=== PATIENT | female | born 1985 | race Caucasian/White ===

== ENCOUNTER 2019-05-05 07:26 | Emergency (ER) | payer OTHER ==
[~2019-05-05] VITALS: Ht 165.1 cm; Wt 80.5 kg
[2019-05-05] MEDS ORDERED: AMOX875T PO (07:34)
[2019-05-05] MEDS ORDERED: NS 1,000 ML IV ONE (08:15)
[2019-05-05] MEDS ORDERED: dexameTHASONE 20 MG/5 ML VIAL (J1100) IV ONE (08:15)
[2019-05-05 09:04] LABS: BASO % 0.3 % (0.0-1.0); EOS % 0.2 % (0.0-3.0); HEMATOCRIT 39.8 % (36.0-47.0); LYMPH % 15.7 % (24.0-44.0); MEAN CORPUSCULAR HEMOGLOBIN 30.2 pg (27.0-33.0); MEAN CORPUSCULAR HGB CONC 32.7 g/dl (32.0-36.5); MEAN CORPUSCULAR VOLUME 92.3 fl (80.0-96.0); MONO # 1.2 10^3/uL (0.0-0.8); MONO % 9.4 % (0.0-5.0); NEUTROPHILS # 9.2 10^3/uL (1.5-8.5); PLATELET COUNT, AUTOMATED 281 10^3/uL (150-450); RED BLOOD COUNT 4.31 10^6/uL (4.00-5.40); WHITE BLOOD COUNT 12.4 10^3/uL (4.0-10.0)
[2019-05-05 09:28] LABS: BLOOD UREA NITROGEN 10 MG/DL (7-18); CALCIUM LEVEL 8.6 MG/DL (8.5-10.1); CARBON DIOXIDE LEVEL 29 MEQ/L (21-32); CHLORIDE LEVEL 108 MEQ/L (98-107); CREATININE FOR GFR 0.67 MG/DL (0.55-1.30); GLOMERULAR FILTRATION RATE > 60.0 (>60); GLUCOSE, FASTING 87 MG/DL (70-100); POTASSIUM SERUM 4.2 MEQ/L (3.5-5.1); SODIUM LEVEL 141 MEQ/L (136-145)
[2019-05-05 09:34] LABS: MONO REFLEX EBV COMP NEGATIVE (NEGATIVE)
[2019-05-05] MEDS ORDERED: IBUP-1022 PO (10:24)
[2019-05-05 10:29] VITALS: BP 141/83
[2019-05-07 00:06] LABS: EBV VIRAL CAPSID AG IgM >160.0 U/mL (0.0-35.9)
== END 2019-05-05 10:56 | disposition home or self-care (01) ==
LOC: M ED 07:26
DX: J03.90 Acute tonsillitis, unspecified (principal); E86.0 Dehydration; Z88.1 Allergy status to other antibiotic agents
CPT/HCPCS: 80048; 85025; 86308; 86663; 86664; 86665; 96361; 96374; 99283; J1100

== ENCOUNTER 2021-01-01 08:00 | Day surgery (SDC) | payer OTHER ==
[~2021-01-01] VITALS: Ht 165.1 cm; Wt 77.9 kg
[~2021-01-01 08:00] MED LIST: AMOX875T PO; IBUP-1022 PO; LR 1,000 ML IV ONE; TRIA1CR80 TOP; VITMTA PO
[2021-01-01] MEDS ORDERED: MIDAZOLAM INJ 2MG/2ML VIAL (J2250 PER 1MG) As Ordered ONE (08:38)
[2021-01-01] MEDS ORDERED: LIDOCAINE 2% INJ 100 MG/5 ML SYRINGE As Ordered ONE (08:38)
[2021-01-01] MEDS ORDERED: ROCURONIUM BROMIDE 50 MG/5 ML VIAL As Ordered ONE (08:38)
[2021-01-01] MEDS ORDERED: fentaNYL 100 MCG/2 ML INJECTION (J3010) As Ordered ONE (08:38)
[2021-01-01] MEDS ORDERED: METOCLOPRAMIDE INJ 10MG/2ML VIAL (J2765 PER 1) As Ordered ONE (08:43)
[2021-01-01 09:03] LABS: HEMATOCRIT 36.9 % (36.0-47.0); HEMOGLOBIN 12.4 g/dl (12.0-15.5); MEAN CORPUSCULAR HEMOGLOBIN 31.2 pg (27.0-33.0); MEAN CORPUSCULAR HGB CONC 33.6 g/dl (32.0-36.5); MEAN CORPUSCULAR VOLUME 92.7 fl (80.0-96.0); PLATELET COUNT, AUTOMATED 328 10^3/uL (150-450); RED BLOOD COUNT 3.98 10^6/uL (4.00-5.40); WHITE BLOOD COUNT 5.5 10^3/uL (4.0-10.0)
[2021-01-01 09:11] LABS: BLOOD UREA NITROGEN 14 MG/DL (7-18); CALCIUM LEVEL 8.3 MG/DL (8.5-10.1); CARBON DIOXIDE LEVEL 24 MEQ/L (21-32); CHLORIDE LEVEL 109 MEQ/L (98-107); GLOMERULAR FILTRATION RATE > 60.0 (>60); GLUCOSE, FASTING 87 MG/DL (70-100); SODIUM LEVEL 140 MEQ/L (136-145)
[2021-01-01 09:13] LABS: HCG, SERUM QUALITATIVE NEGATIVE (NEGATIVE)
[2021-01-01] MEDS ORDERED: BUPIVACAINE HCL 0.5% 30 ML VIAL As Ordered ONE (10:42)
[2021-01-01] MEDS ORDERED: SCOPOLAMINE 1MG TRANSDERMAL PATCH As Ordered ONE (11:11)
[2021-01-01] MEDS ORDERED: HYDROmorphone HCL 2 MG/ML 1ML VIAL (J1170) As Ordered ONE (11:36)
[2021-01-01] MEDS ORDERED: KETOROLAC 60MG 2ML VIAL As Ordered ONE (11:36)
[2021-01-01] MEDS ORDERED: SUGAMMADEX SODIUM 500 MG/5 ML VIAL (BRIDION) As Ordered ONE (11:38)
[2021-01-01] MEDS ORDERED: ePHEDrine SULFATE 25 MG/5 ML(5MG/ML) SYRINGE As Ordered ONE (11:41)
[2021-01-01] MEDS ORDERED: GLYCOPYRROLATE INJ 0.2 MG/ML 2 ML VIAL As Ordered ONE (11:42)
[2021-01-01] MEDS ORDERED: fentaNYL 100 MCG/2 ML INJECTION (J3010) IV PRN (12:25)
[2021-01-01] MEDS ORDERED: LR 1,000 ML IV SCH (12:25)
[2021-01-01] MEDS ORDERED: KETOROLAC 30 MG/ML 1ML VIAL IV PRN (12:25)
[2021-01-01] MEDS ORDERED: ONDANSETRON 4MG/2ML VIAL IV PRN (12:25)
[2021-01-01] MEDS: oxyCODONE 5MG TAB PO PRN ×2 (12:32→13:55)
--- NOTE | 2021-01-01 12:56 | RO ---
OPERATIVE NOTE DATE OF OPERATION: 01/01/2021 PREOPERATIVE DIAGNOSIS: Satisfied parity, desire for Mirena intrauterine device removal. POSTOPERATIVE DIAGNOSIS: Satisfied parity, desire for Mirena intrauterine device removal. PROCEDURE: Intrauterine device removal and laparoscopic bilateral salpingectomy. SURGEON: Girish Amezquita DO EXTRUSION PRESS ADJUSTER: Kim Ortiz MD ANESTHESIA: General. IV FLUIDS: 1 liter LR. URINE OUTPUT: 50 mL via straight cath. EBL: 5 mL. ANTIBIOTICS: None indicated. COMPLICATIONS: None. OPERATIVE FINDINGS: Normal appearing uterus, small paratubal cysts bilaterally on fallopian tubes, ovaries normal in appearance. Liver normal. Gastric curve normal. DESCRIPTION OF PROCEDURE: The risks, benefits, indications, and alternatives of the procedure were reviewed with the patient and informed consent was obtained. The patient was taken to the operating room where general anesthesia was obtained without difficulty. The patient was then placed in the lithotomy position using gel padded Manny stirrups. The patient's arms were then gently tucked to the sides with padding. The patient was prepped and draped in the usual sterile fashion. A surgical time out was then performed and the patient's identity and planned procedure were verified with the operative team. The bladder was drained using in and out catheter. A sterile speculum was then placed in the vagina and the cervix was visualized. IUD strings were seen protruding from the cervical os. The strings were grasped with pickups and the IUD was removed intact and in its entirety from the uterus. The IUD was then discarded. The cervix was hemostatic. A sterile sponge stick was then placed into the vagina as a manipulator. The sterile speculum was removed. Gloves were then exchanged and attention was turned to the patient's abdomen where a 5 mm skin incision was made in the inferior aspect of the umbilicus after injection of Marcaine. 5 mm trocar and sleeve were then carefully introduced into the peritoneal cavity under direct visualization at a 90-degree angle while tenting up the abdominal wall. Intraperitoneal placement was confirmed under direct visualization and entry pressure noted to be less than 5 mmHg. A pneumoperitoneum was obtained with several liters of CO2 gas. Upon entry into the peritoneal cavity structures immediately below the incision were inspected and found to be free of injury A survey of the patient's abdomen and pelvis was notable for normal appearing liver and gastric curve. The uterus and ovaries were normal in appearance. The fallopian tubes had small bilateral paratubal cysts but were otherwise normal. Two additional 5 mm trocars, one in the left lateral aspect of the abdominal wall and one in the right lateral aspect of the abdominal wall were then placed under direct laparoscopic visualization after injection of Marcaine. Using the LigaSure electrocautery, the left fallopian tube was dissected from the mesosalpinx from the fimbriated end to the isthmic portion taking care to cauterize any vasculature within the mesosalpinx. The fallopian tube was then amputated at its connection to the uterine cornua and removed from the patient's abdomen. Attention was then turned to the patient's right fallopian tube which was lifted by a blunt grasper and using the LigaSure electrocautery was removed in a similar fashion. The right fallopian tube was then removed from the patient's abdomen. Operative sites were inspected and were noted to be hemostatic. The gas was turned off and all CO2 was removed from the patient's abdomen. All ports were then removed under direct visualization and there was no bleeding seen from the trocar sites. The skin incisions were then closed with 4-0 Monocryl suture and covered with Dermabond. The sponge stick was then removed from the patient's vagina. The cervix was noted to be hemostatic. At the completion of the case, the sponge, instrument, and needle counts were correct x2. The patient was cleansed and dried, taken out of the lithotomy position, awakened from anesthesia, and taken to PACU in stable condition. [facility]ENTER[facility]uz
[2021-01-01 15:00] VITALS: BP 111/57
== END 2021-01-01 15:00 | disposition home or self-care (01) ==
LOC: M SDC 08:00
PROVIDERS: ATTEND Obstetrics & Gynecology
DX: Z30.2 Encounter for sterilization (principal); Z30.432 Encounter for removal of intrauterine contraceptive device; M51.36 Other intervertebral disc degeneration, lumbar region; L30.9 Dermatitis, unspecified; Z88.1 Allergy status to other antibiotic agents; Z79.52 Long term (current) use of systemic steroids
CPT/HCPCS: 36415; 58301; 58661; 80048; 84703; 85027; 86850; 86900; 86901; 88302; J1170; J1885; J2250; J2405; J2765; J3010

== ENCOUNTER → 2021-05-13 | Outpatient (REF) ==
[~2021-05-13] MED LIST changes: -LR 1,000 ML IV ONE
== END ==
LOC: M PLAIMG 11:03
PROVIDERS: ATTEND Internal Medicine
DX: G89.29 Other chronic pain (principal)